=== PATIENT | female | born 1945 | race Caucasian/White ===

== ENCOUNTER 2018-12-10 18:03 | Observation (INO) | payer MEDICARE ==
[2018-12-10] MEDS ORDERED: Fentanyl 100 MCG/2 ML VIAL ONE (18:19)
[2018-12-10 18:40] LABS: PTT 27.5 SEC (22.9-36.1); Prothrombin Time 13.1 SEC (12.0-14.7)
[2018-12-10 18:51] LABS: Anion Gap 12 mmol/L (10-20); BUN (Urea Nitrogen) 13 mg/dL (9.8-20.1); Calc. Creatinine Clearance 0 mL/min (70-130); Calcium 10.1 mg/dL (7.8-10.44); Carbon Dioxide 26 mmol/L (23-31); Chloride 108 mmol/L (98-107); Estimated GFR-MDRD 71; Glucose 126 mg/dL (83-110); Potassium 3.7 mmol/L (3.5-5.1); Sodium 142 mmol/L (136-145)
[2018-12-10 20:23] VITALS: BMI 26.5
[2018-12-10] MEDS ORDERED: Morphine 2 MG/ML SYRINGE SLOW IVP PRN (22:00)
[2018-12-10] MEDS ORDERED: Ondansetron ODT 4 MG TAB PO PRN (22:02)
[2018-12-10] MEDS ORDERED: Ondansetron PF 4 MG/2 ML Vial IVP PRN (22:02)
[2018-12-10] MEDS ORDERED: diphenhydrAMINE 25 MG CAP PO PRN (22:02)
[2018-12-10] MEDS ORDERED: Acetaminophen 325 MG TAB PO PRN (22:04)
[2018-12-10] MEDS ORDERED: Melatonin 3 MG TAB PO SCH (22:30)
[2018-12-10] MEDS: Sodium Chloride 0.9% 1,000 ML IV SCH (22:30)
[2018-12-10] MEDS ORDERED: Polyethylene Glycol 3350 17 GM Packet PO SCH (22:30)
[2018-12-10] MEDS ORDERED: Rosuvastatin 5 MG TAB PO SCH (22:30)
[2018-12-10 23:08] LABS: PTT 28.4 SEC (22.9-36.1); Prothrombin Time 13.1 SEC (12.0-14.7)
--- NOTE | 2018-12-11 01:29 | HP ---
PRIMARY CARE PHYSICIAN: Dr. Mo. CHIEF COMPLAINT: Snake bite. HISTORY OF PRESENT ILLNESS: Mrs. Cook is a pleasant 73-year-old female with a past medical history of hypertension, hyperlipidemia, who had presented to [facility] after being bit by a snake earlier today when she was gardening. She states that she was out in her backyard, picking up brush and leaves when she had been down and felt a sharp shooting pain in her right hand. She states that she was wearing cotton gloves and when she took her right glove off she had noticed a speck of blood on her finger. She had ran into the house and then put her hand under cold running water and when she looked down, she had noticed dark black spot at the base of her 3rd finger. It was at that time that she had called EMS to seek further attention at [facility]. She was seen in the emergency department at [facility], where she received IV fluids along with Antivenom, she was also treated with morphine and Zofran as needed. She was then transferred to [facility] for further management of her symptoms. Upon arriving to the ED, labs were obtained, PT/INR, PTT, and fibrinogen all had remained in normal limits. Creatine kinase was also normal at 65. She had swelling of her right hand that had tracked up her right forearm, this had improved since being treated with Antivenom. She had no further complaints of headache, fever, chills, she had denied any chest pain, palpitations, or shortness of breath, denied any abdominal pain, nausea, vomiting, or any other systemic symptoms. Blood pressures and other vital signs remained stable, she was in no acute distress. Plan was to transfer her to the medical floor, watch overnight, labs including PT, PTT and INR along with fibrinogen. CBC and CPK will be monitored q.8 hours. She will be kept on IV fluids for hydration and her right arm will be checked by nursing for any further changes of compartment syndrome. All NSAIDs and aspirin will be held and she will be treated with morphine, Zofran and Benadryl as needed. REVIEW OF SYSTEMS: All other systems reviewed and found to be negative unless mentioned in the HPI. PAST MEDICAL HISTORY: Significant for hypertension and hyperlipidemia. PAST SURGICAL HISTORY: Skin cancer removal. SOCIAL HISTORY: Denies any alcohol or illicit drug use; however does admit to smoking about a half pack per day. KNOWN ALLERGIES: Codeine, Compazine, and sulfa drugs. CURRENT HOME MEDICATIONS: 1. Amlodipine 5 mg oral daily. 2. Lisinopril 20 mg oral daily. 3. Crestor 5 mg oral daily. 4. MiraLAX. 5. Melatonin. PHYSICAL EXAMINATION: VITAL SIGNS: BP 144/74, pulse 76, respirations 16, temp 98.1 degrees Fahrenheit, O2 saturation 93% on room air. GENERAL: The patient is awake, alert, and oriented x3. No acute distress noted. She is sitting up in bed and currently comfortable at this time. HEENT: Atraumatic, normocephalic. Pupils are round and reactive to light. Extraocular muscles intact. Moist mucous membranes noted. NECK: Soft, supple, no JVD. Trachea midline. CARDIOVASCULAR: Positive S1 and S2. Regular rate and rhythm. No murmur auscultated. RESPIRATORY: Clear to auscultation bilaterally. No wheezes, rales, or rhonchi. ABDOMEN: Soft, nontender. Bowel sounds present. No rebound. No rigidity. MUSCULOSKELETAL: Strength 5+ on the left, 3+ on the right, this is likely secondary to swelling and pain with movement. She has redness and swelling of her right hand, tracking up right forearm. She has markings noted on her right arm from her previous ER evaluation, the redness and swelling looks to be improving. Warmth and mild tenderness to palpation noted. Otherwise no edema noted. NEUROLOGIC: Cranial nerves 2 through 12 grossly intact. No focal deficits noted. Speech intact and normal. Gait, not assessed. SKIN: As above, changes to right upper arm. PSYCHIATRIC: Good mood and affect. LABORATORY DATA: WBC 9.2, RBC 5.31, hemoglobin 15.5, platelet 292. PT 13.1, INR 1, PTT 28.4. Fibrinogen 365. Sodium 142, potassium 3.7, anion gap 12, BUN 13, creatinine 0.79, estimated GFR 71, glucose 126. Urinalysis showed trace blood, small leukocyte esterase, 4-6 WBCs, 4-6 squamous epithelial cells and 1+ bacteria. DIAGNOSTIC IMAGING: None. ASSESSMENT/PLAN: 1. Snake bite, the patient was treated appropriately with Antivenom. She will remain on IV fluid, normal saline along with morphine, Zofran and Benadryl as needed. Labs including PT, PTT, INR, CBC, CPK and fibrinogen will be monitored every 8 hours, she will be monitored for any further changes and possible signs of a compartment syndrome. She will likely be observed overnight and likely discharge in the a.m., if her symptoms are improved. All nonsteroidal anti-inflammatory drugs and aspirin products and other anticoagulation will be held at this time. It is also advised that the patient not apply any ice to the affected area and any further antibiotics are not indicated at this time. 2. History of hypertension. The patient will be continued on her home regimen. 3. Hyperlipidemia. Continue home medications. 4. The patient's urinalysis showing 1+ bacteria, 4-6 WBCs, 4-6 squamous epithelial cells and small leukocyte esterase, she is currently asymptomatic at this time and this is likely secondary to a urine contaminant sample. Therefore, we will hold off on any antibiotics at this time. However, if the patient develops further symptoms, she will likely be treated with some appropriate antibiotics. CODE STATUS: 1. Full code. 2. Deep venous thrombosis and gastrointestinal prophylaxis. However, hold all nonsteroidal anti-inflammatory drugs, aspirin and anticoagulation. DISPOSITION: Pending further monitoring and patient progress. The patient will likely be discharged in the next 24 to 48 hours, if she is improved. Job ID: [id number]
[2018-12-11 05:08] VITALS: TEMP 98.3
[2018-12-11 06:42] LABS: #Eosinphils 0.3 thou/uL (0.0-0.7); #Lymphocytes 2.5 thou/uL (1.20-3.40); #Monocytes 0.8 thou/uL (0.11-0.59); #Neutrophils 5.8 thou/uL (1.40-6.50); %Basophils 0.4 % (0.0-1.0); %Eosinophils 2.9 % (0.0-10.0); %Lymphocytes 26.3 % (21.0-51.0); %Neutrophils 61.5 % (42.0-75.0); Hemoglobin 12.8 g/dL (12.0-16.0); Mean Corpuscular HGB CONC 33.9 g/dL (32.0-36.0); Mean Corpuscular Hemoglobin 31.6 pg (27.0-31.0); Mean Corpuscular Volume 93.1 fL (78.0-98.0); Platelet Count 287 thou/uL (130-400); RBC Distribution Width 11.6 % (11.5-14.5); Red Blood Cell (RBC) Count 4.06 mill/uL (4.20-5.40); White Blood Cell (WBC) Count 9.4 thou/uL (4.8-10.8)
[2018-12-11 06:44] LABS: PTT 28.6 SEC (22.9-36.1); Prothrombin Time 12.9 SEC (12.0-14.7)
[2018-12-11 06:55] LABS: Anion Gap 10 mmol/L (10-20); BUN (Urea Nitrogen) 11 mg/dL (9.8-20.1); Calc. Creatinine Clearance 78 mL/min (70-130); Calcium 9.3 mg/dL (7.8-10.44); Carbon Dioxide 21 mmol/L (23-31); Chloride 114 mmol/L (98-107); Estimated GFR-MDRD Greater than 90; Glucose 93 mg/dL (83-110); Potassium 3.9 mmol/L (3.5-5.1); Sodium 141 mmol/L (136-145)
[2018-12-11] MEDS: Sodium Chloride 0.9% 1,000 ML IV SCH (08:04)
[2018-12-11 08:06] VITALS: BP 156/80
[2018-12-11] MEDS ORDERED: Amlodipine 5 MG TAB PO SCH (09:00)
[2018-12-11] MEDS ORDERED: Lisinopril 20 MG TAB PO SCH (09:00)
[2018-12-11] MEDS ORDERED: Famotidine 20 MG TAB PO SCH (09:00)
--- NOTE | 2018-12-11 20:10 | DIS ---
DATE OF ADMISSION: 12/10/2018 DATE OF DISCHARGE: 12/11/2018 PRIMARY CARE PHYSICIAN: Dr. Mo. PROCEDURES: None. HOSPITAL COURSE: This is a 73-year-old female, who was cleaning up her garden yesterday, when she felt a sharp pain on her right hand at the base of her third finger. She reports she was wearing gloves at the time, but she took her gloves off. She saw a little speck of blood, which she went inside to wash her hands. She looked down and noticed that she had one black spot at the base of her third finger. At that time, she called EMS, who took her to [facility]. There, she received IV fluids along with the dose of the antivenin and given morphine and Zofran. She was then transferred to [facility] for admission for continued observation. At the time of admission, she had some swelling to her right hand, that was tracked up to her right forearm, but currently denies any pain. Lab values remained stable. The patient was kept overnight on IV fluids. Area of swelling and induration was marked. The patient reports that she feels much better. Reports that swelling has decreased. Discharge plan does discuss with Dr. English, who reviewed the patient's lab values and agreed the patient could go home. The patient was anxious to go home and was subsequently discharged. DISCHARGE DIAGNOSES: 1. Envenomation to improving. 2. Hypertension. 3. Hyperlipidemia. REVIEW OF SYSTEMS: The patient does have a small area of necrosis base of third finger on the right hand with some associated edema that does go up past her elbow. The patient does has full range of motion. She reports that she feels much better. No signs of compartment syndrome. Denies chest pain, shortness of breath, abdominal pain, nausea, or vomiting. All other systems are reviewed and are negative unless mentioned in the hospital course. PHYSICAL EXAMINATION: VITAL SIGNS: Temperature is 98.3, pulse is 72, respirations 16, pO2 saturations 92% on room air, and blood pressure is 112/58. CONSTITUTIONAL: The patient appears nontoxic, appears pain free, is alert and oriented to person, place, and time. HEENT: Head is atraumatic and normocephalic. Eyes, eyelids are normal to inspection. Pupils are equally round and reactive to light. ENT, mucous membranes are moist. Mouth exam is normal. NECK: Normal range of motion. Trachea is midline. RESPIRATORY: Chest, breath sounds are clear. No findings of any respiratory distress. CARDIOVASCULAR: Heart rate, regular rate and rhythm. Heart sounds are normal. ABDOMEN: Nontender. Bowel sounds are heard. BACK: Normal inspection. Normal range of motion. No tenderness. EXTREMITIES: Upper extremity, puncture oh at base of right third finger, diffuse swelling throughout right hand, forearm, and posterior aspect of right elbow. Pulses are equal bilaterally. Normal range of motion bilaterally. Sensation is intact bilaterally. Lower extremity, normal range of motion. Motor strength is normal. Pedal pulses equal bilaterally. NEURO: The patient is oriented to person, place, and time. Speech is normal. No focal motor or sensory deficits. SKIN: Warm, dry, and normal in color. Right arm with edema noted to right hand, forearm, posterior aspect of right elbow. ALLERGIES: CODEINE AND COMPAZINE. HOME MEDICATIONS: Restarted on discharge; 1. Norvasc 5 mg p.o. daily. 2. Lisinopril 20 mg p.o. daily. 3. Melatonin 6 mg p.o. at bedtime. 4. MiraLAX 17 g p.o. at bedtime. 5. Crestor 5 mg p.o. at bedtime. PERTINENT LABORATORY DATA: White blood cell count 9.4, hemoglobin 12.8, hematocrit 37.8, and platelet count is 287. Coagulation last time checked this morning at 6 a.m.; PT is 12.9, INR is 1, and APTT is 28.6. Fibrinogen is 326 and fibrinogen was 359, 12 hours prior and has come down to 326. Sodium is 141, potassium is 3.9, chloride is 114, carbon dioxide is 21, gap is 10, BUN is 11, creatinine is 0.62, estimated GFR is greater than 90, glucose is 93, and calcium is 9.3. CK is 75. The patient's condition is stable. The patient should follow up with Dr. Mo within the next week. She was cautioned that if pain or swelling continues or starts to increase again to seek medical attention in the closest emergency room. Discharge plan discussed with Dr. English, who agrees. Job ID: [id number]
[2018-12-11] MEDS ORDERED: Rosuvastatin 5 MG TAB PO SCH (21:00)
[2018-12-11] MEDS ORDERED: Polyethylene Glycol 3350 17 GM Packet PO SCH (21:00)
[2018-12-11] MEDS ORDERED: Melatonin 3 MG TAB PO SCH (21:00)
== END 2018-12-11 13:53 | disposition home or self-care (01) ==
LOC: ERS 18:03 → INTOOBSV 19:57 → T4-B 19:57
PROVIDERS: ADMIT Internal Medicine; ATTEND Internal Medicine
DX: T63.001A Toxic effect of unspecified snake venom, accidental (unintentional), initial encounter (principal); M79.89 Other specified soft tissue disorders; I10 Essential (primary) hypertension; E78.5 Hyperlipidemia, unspecified; F17.210 Nicotine dependence, cigarettes, uncomplicated; Z79.899 Other long term (current) drug therapy; Z88.2 Allergy status to sulfonamides; Z88.5 Allergy status to narcotic agent; Z88.8 Allergy status to other drugs, medicaments and biological substances
CPT/HCPCS: 80048 ×2; 82550 ×2; 85025; 85384 ×2; 85610 ×2; 85730 ×2; 96361 ×2; 96374; 99285; G0378; 36415; 36416; J3010

== ENCOUNTER 2019-03-16 10:52 | Outpatient (CLI) | payer MEDICARE ==
--- NOTE | 2019-03-16 11:29 | MMO ---
Bilateral MAMMO Bilat Screen [facility]. CLINICAL HISTORY: Patient is 73 years old and is seen for screening. The patient has no family history of breast cancer. The patient has no personal history of cancer. VIEWS: The views performed were: bilateral craniocaudal and bilateral mediolateral oblique. FILMS COMPARED: The present examination has been compared to prior imaging studies performed at [facility] on 06/09/2011, 09/07/2013 and 08/05/2016. This study has been interpreted with the assistance of computer-aided detection. MAMMOGRAM FINDINGS: There are scattered fibroglandular densities. There are no suspicious masses, suspicious calcifications, or new areas of architectural distortion. IMPRESSION: THERE IS NO MAMMOGRAPHIC EVIDENCE OF MALIGNANCY. A ROUTINE FOLLOW-UP MAMMOGRAM IN 1 YEAR IS RECOMMENDED. ACR BI-RADS Category 1 - Negative MAMMOGRAPHY NOTE: 1. A negative mammogram report should not delay a biopsy if a dominant of clinically suspicious mass is present. 2. Approximately 10% to 15% of breast cancers are not detected by mammography. 3. Adenosis and dense breasts may obscure an underlying neoplasm. Reported by: LUKE REIS MD Electonically Signed: [id number]
== END 2019-03-16 10:53 | disposition home or self-care (01) ==
LOC: SCSMAMMO 10:52
PROVIDERS: ATTEND Family Medicine
DX: Z12.31 Encounter for screening mammogram for malignant neoplasm of breast (principal)
CPT/HCPCS: 77067